=== PATIENT | male | born 2000 | race Caucasian/White ===

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

== ENCOUNTER 2020-07-27 14:16 | Emergency (ER) | payer OTHER ==
[~2020-07-27 14:16] MED LIST: LEVO750T2 PO
[2020-07-27] MEDS ORDERED: LIDOCAINE MPF 1% 5 ML ONE (15:06)
[2020-07-27] MEDS ORDERED: KETOROLAC 30 MG/ML VIAL ONE (15:06)
[2020-07-27] MEDS ORDERED: BACITRACIN OINT 500 UNITS/GM PKT TP ONE (15:06)
[2020-07-27 16:27] VITALS: BP 118/79
--- NOTE | 2020-07-27 16:27 | NUR ---
Patient discharged with v/s stable. Written and verbal after care instructions given and explained. Patient alert, oriented and verbalized understanding of instructions. Ambulatory with steady gait. All questions addressed prior to discharge. ID band removed. Patient advised to follow up with PMD. Rx of Naprosyn 500mg and Robaxin 750mg given. Patient educated on indication of medication including possible reaction and side effects. Opportunity to ask questions provided and answered.
== END 2020-07-27 16:27 | disposition home or self-care (01) ==
LOC: MED 14:16
DX: S01.91XA Laceration without foreign body of unspecified part of head, initial encounter (principal); V89.2XXA Person injured in unspecified motor-vehicle accident, traffic, initial encounter; Y93.89 Activity, other specified; Y92.89 Other specified places as the place of occurrence of the external cause; Y99.8 Other external cause status
CPT/HCPCS: 73562; 99283; J1885; J2001